=== PATIENT | female | born 1980 | race Two or more races ===

== ENCOUNTER → 2024-09-13 09:47 | Outpatient (CLI) | payer OTHER | END | disposition home or self-care (01) | LOC: NUCLEAR 09:47 | PROVIDERS: ATTEND Internal Medicine Sports Medicine | DX: C73 Malignant neoplasm of thyroid gland (principal) ==

== ENCOUNTER 2024-09-17 11:14 | Outpatient (CLI) | payer OTHER | END 2024-09-17 11:15 | disposition home or self-care (01) | LOC: NUCLEAR 11:14 | PROVIDERS: ATTEND Internal Medicine Sports Medicine | DX: C73 Malignant neoplasm of thyroid gland (principal) ==